=== PATIENT | female | born 2005 | race Caucasian/White ===

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

== ENCOUNTER 2023-12-16 07:15 | Outpatient (CLI) | payer OTHER, SELFPAY | END 2023-12-16 07:16 | disposition home or self-care (01) | LOC: AMB 12-19 01:41 | PROVIDERS: Visit Provider Family Medicine | DX: R56.9 Unspecified convulsions (principal) | CPT/HCPCS: A0425; A0429 ==

== ENCOUNTER 2023-12-16 07:51 | Emergency (ER) | payer OTHER, SELFPAY ==
[2023-12-16 07:57] VITALS: BP 96/57; PULSE 62; RESP 14; TEMP 36.1; O2SAT 99; BMI 21.3
--- NOTE | 2023-12-16 08:19 | ED_ITS ---
HPI - General Adult General Chief complaint: Seizure Stated complaint: Seizure Time Seen by Provider: 12/16/23 07:58 Source: patient Mode of arrival: ambulatory Limitations: no limitations History of Present Illness HPI narrative: Year old female coming in today presenting after a seizure at home. Seizure happened approximately 1 hour ago. Patient states that she woke up and went to the bathroom and felt ?funny?. She knew she was going to receives which went back into her room. She did subsequently have a seizure, unsure how long was but believes it was a couple of minutes. Did not lose bladder control, did not bite her tongue. She was confused when she woke up but she feels like she came to fairly quickly. No vomiting. She denies any chest or abdominal pain. She denies any headache. Patient does have a seizure disorder, her last seizure was approximately 3 years ago. She denies taking any seizure medications. She denies any recent drug use, no changes in her fluoxetine. Related Data Home Medications Medication Instructions Recorded Confirmed fluoxetine 40 mg capsule 40 mg PO DAILY 12/16/23 12/16/23 Allergies Allergy/AdvReac Type Severity Reaction Status Date / Time No Known Drug Allergies Allergy Verified 12/16/23 08:02 Review of Systems Status of ROS: Reports: 10 or more systems reviewed and unremarkable except as noted in History and below [facility] Social History Smoking Status: Unknown if ever smoked Do you use any of these nicotine containing products: None How often do you have a drink containing alcohol: monthly or less How many standard drinks containing alcohol do you have on a typical day: 1 or 2 How often do you have six or more drinks on one occasion: Never AUDIT-C Alcohol total score: 1 Non-prescribed substance use: marijuana (any form) Exam Narrative: Exam Narrative: Well-nourished well-developed patient in no acute distress. Alert and oriented. Answers questions appropriately. Mood and affect are appropriate. Thoughts are goal oriented and rational. No tangential or magical thinking noted. Patient speaks in full sentences without needing to catch her breath. Speech is not slurred or pressured. HEENT: Normocephalic atraumatic. Pupils are equally round reactive to light. Extraocular muscles are intact. Conjunctivae are moist without any icterus noted. Moist mucous membranes. Cardiovascular: Heart is regular rate and rhythm S1 and S2 are present without any murmurs. Lungs: Clear to auscultation bilaterally no wheezes rhonchi or rales are appreciated. Patient takes deep breaths without any discomfort. Abdomen: Soft and nontender nondistended with normal bowel sounds. Extremities: Bilateral lower extremities are without edema. Delete Skin: Well perfused without any obvious rashes. Strength is 5/5 of the upper and lower extremities. Reflexes are 2+ and symmetric at the knees. There is no nystagmus either horizontally or vertically. Gait is normal. Const: Vital Signs, click to edit/add: Vital Signs - 24 hr 12/16/23 07:57 Temperature 97.0 F L Pulse Rate [Pulse Oximeter] 62 Respiratory Rate 14 Blood Pressure [Le ft Upper Arm] 96/57 L Pulse Oximetry 99 Oxygen Delivery Me thod Room Air Course Course ED Course: I did discuss this patient with Dr. Olguin at [facility], she recommends loading dose of Keppra with b.i.d. Keppra going forward and an MRI today. I discussed these things with the patient she tells me she had an MRI perhaps 6 years ago but she is unsure, she is also unsure of the results. She would like to have 1 done today. She is however, refusing all medications. She states that she has had discussion about medication with providers in the past is recommended she not take any she has her medication. MRI was unremarkable. Vital Signs Vital signs: Initial Vital Signs Temperature 97.0 F L 12/16/23 07:57 Temperature Source Temporal Artery Scan 12/16/23 07:57 Pulse Rate 62 12/16/23 07:57 Pulse Rhythm Regular 12/16/23 07:57 Respiratory Rate 14 12/16/23 07:57 Blood Pressure 96/57 L 12/16/23 07:57 Blood Pressure Mean 70 12/16/23 07:57 Blood Pressure Position Supine 12/16/23 07:57 Pulse Oximetry 99 12/16/23 07:57 Oxygen Delivery Method Room Air 12/16/23 07:57 Vital Signs Temperature 97.0 F L 12/16/23 07:57 Pulse Rate 62 12/16/23 07:57 Respiratory Rate 14 12/16/23 07:57 Blood Pressure 96/57 L 12/16/23 07:57 Pulse Oximetry 99 12/16/23 07:57 Oxygen Delivery Method Room Air 12/16/23 07:57 Temperature 97.0 F L 12/16/23 07:57 Pulse Rate 62 12/16/23 07:57 Respiratory Rate 14 12/16/23 07:57 Blood Pressure 96/57 L 12/16/23 07:57 Pulse Oximetry 99 12/16/23 07:57 Oxygen Delivery Method Room Air 12/16/23 07:57 Medical Decision Making MDM Narrative Medical decision making narrative: 18-year-old female with what sounds like seizure activity this morning. Patient refusing all offered medications. Recommend Follow-up with her primary care provider. Imaging Data MRI - head: Attestation: I have reviewed the pertinent imaging results. Radiologist's impression: Brain MRI with contrast. The following sequences were obtained: Sagittal T1 weighted sequence. DWI and ADC mapping sequences. Axial FLAIR and JOSE MIGUEL T2 weighted sequences. Susceptibility weighted or GRE sequence. T1 weighted post-contrast sequence(s). 11 cc of Dotarem gadolinium based contrast agent was used. COMPARISON: None. FINDINGS: No evidence of acute ischemia. No evidence of acute or chronic intracranial blood products. No mass or pathologic intracranial enhancement. A small left superior frontal developmental venous anomaly. No intracranial signal abnormality. No hydrocephalus or extra-axial collections. The pituitary gland, parasellar structures and optic chiasm are normal. Posterior fossa is normal. All the major intracranial vascular structures demonstrate normal flow-related signal. The orbital contents are normal. No calvarial or skull base marrow signal abnormality. Mild to moderate mucosal thickening ethmoid air cells and maxillary sinuses. No extracranial soft tissue findings. IMPRESSION: 1. No significant intracranial pathology. Discharge Plan Discharge Clinical Impression: Generalized seizure Patient Disposition: Home, Self-Care Condition: Stable Additional Instructions: Follow-up with primary care provider as needed. Prescriptions: No Action fluoxetine 40 mg capsule 40 mg PO DAILY Follow Up/Referrals: Provider,Not a Local [Primary Care Provider] - Stand Alone Forms: [employer] Info Instructions
--- NOTE | 2023-12-16 11:00 | CRLHL7_ITS ---
For Patients: As a result of the Century Cures Act, medical imaging exams and procedure reports are released immediately into your electronic medical record. You may view this report before your referring provider. If you have questions, please contact your health care provider. INDICATION: Seizures. TECHNIQUE: Brain MRI with contrast. The following sequences were obtained: Sagittal T1 weighted sequence. DWI and ADC mapping sequences. Axial FLAIR and JOSE MIGUEL T2 weighted sequences. Susceptibility weighted or GRE sequence. T1 weighted post-contrast sequence(s). 11 cc of Dotarem gadolinium based contrast agent was used. COMPARISON: None. FINDINGS: No evidence of acute ischemia. No evidence of acute or chronic intracranial blood products. No mass or pathologic intracranial enhancement. A small left superior frontal developmental venous anomaly. No intracranial signal abnormality. No hydrocephalus or extra-axial collections. The pituitary gland, parasellar structures and optic chiasm are normal. Posterior fossa is normal. All the major intracranial vascular structures demonstrate normal flow-related signal. The orbital contents are normal. No calvarial or skull base marrow signal abnormality. Mild to moderate mucosal thickening ethmoid air cells and maxillary sinuses. No extracranial soft tissue findings. IMPRESSION: 1. No significant intracranial pathology. Dictated by Darwin Cohen MD @ 12/16/2023 11:39:51 AM (Electronically Signed)
== END 2023-12-16 11:52 | disposition home or self-care (01) ==
PROVIDERS: Emergency Provider Family Medicine
DX: G40.909 Epilepsy, unspecified, not intractable, without status epilepticus (principal)
CPT/HCPCS: 70553; 99284; A9575